=== PATIENT | male | born 1965 | race Caucasian/White ===

== ENCOUNTER 2017-11-04 00:17 | Emergency (ER) | payer BC ==
[2017-11-04 00:28] VITALS: BMI 28.7
[2017-11-04] MEDS ORDERED: TETANUS AND DIPHTHERIA TOXOID 0.5 ML DISP.SYRIN IM ONE (01:06)
--- NOTE | 2017-11-04 01:25 | PDOC ---
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 States that he had been drinking was unsteady slipped and fell 2, last time hitting his head on the door frame. Per daughter no LOC. Patient is a poor historian currently due to intoxication PMHX: negative PSocHx: (+) etoh, ALL: erythromycin ROS unable to obtain due to intoxication. GENERAL: [The patient is awake, alert, and fully oriented, in no acute distress. ] HEAD: (+) laceration to the right occiput 2cm with hematoma EYES: [Pupils equal, round and reactive to light, extraocular movements intact, sclera anicteric, conjunctiva clear.] ENT: [Ears normal, nares patent, oropharynx clear without exudates. Moist mucous membranes.] NECK: [Normal range of motion, supple without lymphadenopathy, JVD, or masses.] LUNGS: [Breath sounds equal, clear to auscultation bilaterally. No wheezes, and no crackles.] HEART: [Regular rate and rhythm, normal S1 and S2 without murmur, rub.] ABDOMEN: [Soft, nontender, normoactive bowel sounds. No guarding, no rebound. No masses.] EXTREMITIES: [Normal range of motion, no edema. No clubbing or cyanosis. No cords, erythema, or tenderness.] NEUROLOGICAL: [Cranial nerves II through XII grossly intact. slurred speech, opthomoplegia, unsteady gait.] PSYCH: aggressive mood, normal affect.] SKIN: [Warm, Dry, normal turgor, no rashes or lesions noted.] Past History - Past Medical History Allergies/Adverse Reactions: Allergies Allergy/AdvReac Type Severity Reaction Status Date / Time erythromycin lactobionate Allergy Verified 12/01/11 01:40 [From Erythrocin] COPD: No DVT: No - Surgical History Appendectomy: Yes - Suicide/Smoking/Psychosocial Hx Smoking Status: No Smoking History: Current some day smoker Number of Cigarettes Smoked Daily: 0 Information on smoking cessation initiated: No Hx Alcohol Use: Yes *Physical Exam - Vital Signs Last Vital Signs Temp Pulse Resp BP Pulse Ox 152/81 11/04/17 00:25 Procedures - Laceration/Wound Repair Right Posterior Head Wound Length: to 2.5 cm Wound's Depth, Shape: superficial Wound Repaired With: [place] (refused) ED Treatment Course - RADIOLOGY Radiology Studies Ordered: Category Date Time Status HEAD CT WITHOUT CONTRAST [CT] Stat CT Scan 11/04/17 01:05 Ordered Medical Decision Making - Medical Decision Making 11/04/17 01:25 Patient is a 51-year-old male with no past medical history 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 ct head and staple Patient Full Name: FRANCOIS PHIPPS Patient Accession No: [id number] Patient : 1965 Reason for Exam: CLOSE HEAD INJURY Referring Physician: Patient Name: MOISE PARRISH THIS IS A PRELIMINARY REPORT FROM [facility] DATE OF SERVICE: 2017-11-04 01:13:56 IMAGES: 173 EXAM: HEAD CT WITHOUT CONTRAST HISTORY: Closed head injury COMPARISON: None. FINDINGS: Brain parenchyma is normal in attenuation with no mass or hematoma. There is no midline shift. Hauser and white matter differentiation is normal. Ventricles are normal. Sulci and extra-axial CSF spaces are normal. Intracranial vascular structures are normal in attenuation. There is no calvarial fracture. Paranasal sinuses are normally aerated. IMPRESSION: Normal head THIS DOCUMENT HAS BEEN ELECTRONICALLY SIGNED Samson Carrion MD 11/04/2017 01:37 EST M.D. Please call [facility] [phone]) with questions. INTERPRETING RADIOLOGIST: Samson Carrion MD Electronically Signed: Nov 04, 2017 01:40AM EDT 11/04/17 01:58 At discharge family did not feel safe taking the patient home and requested that the patient stay sober up and will collect him in the morning. Patient became very belligerent, uncooperative. He was given Haldol 5 mg and Ativan 2 mg IM 11/04/17 06:58 Patient still sleepy but less agitated and combative. Called Mer his at [phone] who will pick him up but due to the weather will be delayed in picking him up. endorsed to the AM team. *DC/Admit/Observation/Transfer Diagnosis at time of Disposition: Head injury Qualifiers: Encounter type: initial encounter Qualified Code(s): S09.90XA - Unspecified injury of head, initial encounter Laceration of scalp Qualifiers: Encounter type: initial encounter Qualified Code(s): S01.01XA - Laceration without foreign body of scalp, initial encounter - Discharge Dispostion Disposition: HOME Condition at time of disposition: Stable - Referrals - Patient Instructions Printed Discharge Instructions: DI for Closed Head Injury Additional Instructions: Your Discharge Instructions: You must call primary care physician within 24 hours to arrange follow-up. Return to the Emergency Department with any new, persistent or worsening symptoms, for fever, chills, SOB, dizziness or any other concerning changes that may occur. Staple removal in 7 days. You may return to the emergency room fast track area between the hours of 8 AM to 10 PM - Post Discharge Activity
[2017-11-04] MEDS ORDERED: LORazepam 2 MG/ML SDV VIAL ONE (02:39)
[2017-11-04] MEDS ORDERED: HALOPERIDOL LACTATE 5 MG/ML ONE (02:39)
[2017-11-04] MEDS ORDERED: HALOPERIDOL LACTATE 5 MG/ML IM ONE (02:52)
[2017-11-04] MEDS ORDERED: IBUPROFEN 400 MG TABLET (FP) PO ONE ×2 (08:02→08:21)
--- NOTE | 2017-11-04 08:05 | PDOC ---
*Physical Exam - Vital Signs Last Vital Signs Temp Pulse Resp BP Pulse Ox 152/81 98 11/04/17 00:25 11/04/17 05:26 - Physical Exam General Appearance: Yes: Appropriately Dressed. No: Apparent Distress HEENT: positive: Normal Voice Neck: positive: Supple Respiratory/Chest: negative: Respiratory Distress Gastrointestinal/Abdominal: positive: Soft. negative: Tender Extremity: positive: Normal Inspection, Other (LROM 2/2 pain). negative: Tender , Swelling Integumentary: positive: Dry, Warm Neurologic: positive: Fully Oriented, Alert, Normal Mood/Affect ED Treatment Course - RADIOLOGY Radiology Studies Ordered: Category Date Time Status SHOULDER-RIGHT [RAD] Stat Radiology 11/04/17 08:01 Ordered - Medications Given in the ED: ED Medications Discontinued Medications Generic Name Dose Route Start Last Admin Trade Name Freq PRN Reason Stop Dose Admin Haloperidol 5 mg 11/04/17 02:52 11/04/17 02:57 Haldol Injection (Fast Acting) - IM 11/04/17 02:53 5 mg ONCE ONE Administration Lorazepam 2 mg 11/04/17 02:52 11/04/17 02:57 Ativan Injection - IM 11/04/17 02:53 2 mg ONCE ONE Administration Tetanus/Diphtheria Toxoids Adsorbed 0.5 ml 11/04/17 01:06 11/04/17 02:10 Decavac IM 11/04/17 01:07 Not Given .ONCE ONE Medical Decision Making - Medical Decision Making 11/04/17 08:02 Signed out to me at 7 AM by TEQUILA Douglas. Patient is a 51-year-old male, EtOH abuse, presents with fall with head injury in the setting of alcohol intoxication. Per prior team, patient poor historian secondary to condition. CT head done and negative. Refused repair of scalp lac. Patient currently sleeping in ED. To be reassessed. Patient's , Mer was contacted and is en route to pick patient up 11/04/17 08:04 On reassessment, patient now awake and alert w/ clear speech and able to ambulate. Only reports right shoulder pain at this time. Patient states he has chronic pain to right shoulder, but that pain might have worsened, status post fall. Pain worse with range of motion. Denies headache, dizziness, nausea , vomiting at this time. Continues to refuse lac repair. X-ray shoulder pending. Dose of Motrin given in ED. I spoke to patient's , who is currently trying to clean snow off her car and then states will make her way to ED to pick patient up 11/04/17 09:20 Xray neg for fx. Pain improved w/ meds. at bedside to take pt home. Pt stable for discharge *DC/Admit/Observation/Transfer Diagnosis at time of Disposition: Head injury Qualifiers: Encounter type: initial encounter Qualified Code(s): S09.90XA - Unspecified injury of head, initial encounter Laceration of scalp Qualifiers: Encounter type: initial encounter Qualified Code(s): S01.01XA - Laceration without foreign body of scalp, initial encounter Shoulder pain, right Qualifiers: Chronicity: acute Qualified Code(s): M25.511 - Pain in right shoulder - Discharge Dispostion Disposition: HOME Condition at time of disposition: Stable - Referrals - Patient Instructions Printed Discharge Instructions: DI for Closed Head Injury Additional Instructions: Your Discharge Instructions: You must call primary care physician within 24 hours to arrange follow-up. Return to the Emergency Department with any new, persistent or worsening symptoms, for fever, chills, SOB, dizziness or any other concerning changes that may occur. Staple removal in 7 days. You may return to the emergency room fast track area between the hours of 8 AM to 10 PM - Post Discharge Activity
[2017-11-04 09:37] VITALS: BP 148/87; PULSE 88
== END 2017-11-04 09:37 | disposition home or self-care (01) ==
LOC: JER 00:17
PROC: 3E0234Z Introduction of Serum, Toxoid and Vaccine into Muscle, Percutaneous Approach (ICD-10-PCS; principal; 2017-11-04)
PROC: 3E023NZ Introduction of Analgesics, Hypnotics, Sedatives into Muscle, Percutaneous Approach (ICD-10-PCS; 2017-11-04)
PROC: 3E023NZ Introduction of Analgesics, Hypnotics, Sedatives into Muscle, Percutaneous Approach (ICD-10-PCS; 2017-11-04)
DX: S01.01XA Laceration without foreign body of scalp, initial encounter (principal); W01.118A Fall on same level from slipping, tripping and stumbling with subsequent striking against other sharp object, initial encounter; F10.10 Alcohol abuse, uncomplicated; F17.210 Nicotine dependence, cigarettes, uncomplicated; Y92.018 Other place in single-family (private) house as the place of occurrence of the external cause
CPT/HCPCS: 70450-TC; 73030-TC-RT-FY; 99281-25

== ENCOUNTER 2019-01-21 08:35 | Day surgery (SDC) | payer BC ==
[2019-01-20 15:08] VITALS: BMI 25.1
[2019-01-21 11:11] VITALS: TEMP 98.7
[2019-01-21 11:58] VITALS: BP 146/90; PULSE 64
--- NOTE | 2019-01-22 11:42 | PATH ---
Surgical Pathology Report Patient Name: MOISE PARRISH [facility]. Rec. #: [id number] /Age/Gender: 1965 (Age: 53) / M Account: [id number] Location: [facility]-ENDOSCOPY Taken: 01/21/2019 Received: 01/21/2019 Reported: 01/22/2019 Physicians: Hector Ortega M.D. Specimen(s) Received A: SECOND PORTION DUODENUM AND DUODENAL BULB B: ANTRUM C: GE JUNCTION D: MID ESOPHAGUS E: PROXIMAL TRANSVERSE COLON POLYP F: CECUM Clinical History Family history of esophageal cancer, reflux, family history of colon cancer Postoperative diagnosis: GERD, hiatal hernia, gastritis, colon polyps, diverticulosis Final Diagnosis A. DUODENUM, SECOND PORTION AND DUODENAL BULB, BIOPSY: DUODENAL MUCOSA WITHOUT SIGNIFICANT PATHOLOGIC FINDINGS. B. STOMACH, ANTRUM, BIOPSY: GASTRIC ANTRAL MUCOSA WITH MILD CHRONIC GASTRITIS. IMMUNOHISTOCHEMICAL STAIN FOR H. PYLORI IS NEGATIVE. C. GE JUNCTION, BIOPSY: SQUAMOCOLUMNAR MUCOSA WITH MILD CHRONIC INFLAMMATION AND CHANGES OF MODERATE REFLUX ESOPHAGITIS. NO INTESTINAL METAPLASIA OR DYSPLASIA IDENTIFIED. D. MID ESOPHAGUS, BIOPSY: SQUAMOUS MUCOSA WITH CHANGES CONSISTENT WITH MODERATE REFLUX ESOPHAGITIS. E. PROXIMAL TRANSVERSE COLON, POLYP, BIOPSY: TUBULAR ADENOMA. F. CECAL, POLYP, BIOPSY: POLYPOID COLONIC MUCOSA WITH SMALL LYMPHOID AGGREGATE. Electronically Signed Luz Marina Waddell M.D. Gross Description A. Received in formalin, labeled "biopsy second portion of duodenum and duodenal bulb" are 3 padgett, irregular portions of soft tissue averaging 0.4 cm. in greatest dimension. The specimens are submitted in toto in one cassette. B. Received in formalin, labeled "biopsy antrum" are 3 padgett, irregular portions of soft tissue ranging from 0.3-0.4 cm. in greatest dimension. The specimens are submitted in toto in one cassette. C. Received in formalin, labeled "biopsy GE junction" are 3 padgett, irregular portions of soft tissue ranging from 0.1-0.5 cm. in greatest dimension. The specimens are submitted in toto in one cassette. D. Received in formalin, labeled "biopsy mid esophagus" are 2 padgett, irregular portions of soft tissue measuring 0.3 and 0.4 cm. in greatest dimension. The specimens are submitted in toto in one cassette. E. Received in formalin, labeled "biopsy proximal transverse colon polyp" are 3 padgett, irregular portions of soft tissue ranging from 0.1-0.3 cm. in greatest dimension. The specimens are submitted in toto in one cassette. F. Received in formalin, labeled "biopsy cecal polyp" are 2 padgett, irregular portions of soft tissue averaging 0.3 cm. in greatest dimension. The specimens are submitted in toto in one cassette. 01/21/2019 [facility]01/21/2019
== END 2019-01-21 11:47 | disposition home or self-care (01) ==
LOC: JASU-ENDO 08:35
PROVIDERS: ATTEND Internal Medicine Gastroenterology
PROC: 0DBH8ZX Excision of Cecum, Via Natural or Artificial Opening Endoscopic, Diagnostic (ICD-10-PCS; 2019-01-21)
PROC: 0DBL8ZX Excision of Transverse Colon, Via Natural or Artificial Opening Endoscopic, Diagnostic (ICD-10-PCS; 2019-01-21)
PROC: 0DB68ZX Excision of Stomach, Via Natural or Artificial Opening Endoscopic, Diagnostic (ICD-10-PCS; principal; 2019-01-21 09:45)
DX: Z12.11 Encounter for screening for malignant neoplasm of colon (principal); Z80.0 Family history of malignant neoplasm of digestive organs; D12.0 Benign neoplasm of cecum; D12.3 Benign neoplasm of transverse colon; K64.8 Other hemorrhoids; K57.30 Diverticulosis of large intestine without perforation or abscess without bleeding; K21.0 Gastro-esophageal reflux disease with esophagitis; K44.9 Diaphragmatic hernia without obstruction or gangrene; K29.70 Gastritis, unspecified, without bleeding; K25.9 Gastric ulcer, unspecified as acute or chronic, without hemorrhage or perforation
CPT/HCPCS: 88305-TC; 88342-TC

== ENCOUNTER 2023-10-24 04:56 | Day surgery (SDC) | payer BC ==
[2023-10-18 14:16] VITALS: BMI 25.5
[2023-10-24 09:28] VITALS: TEMP 98.7
[2023-10-24 10:07] VITALS: BP 140/80; PULSE 62; RESP 1
== END 2023-10-24 11:00 | disposition home or self-care (01) ==
LOC: JASU-ENDO 04:56
PROVIDERS: ATTEND Internal Medicine Gastroenterology
PROC: 0DBL8ZX Excision of Transverse Colon, Via Natural or Artificial Opening Endoscopic, Diagnostic (ICD-10-PCS; principal; 2023-10-24 09:00)
DX: Z12.11 Encounter for screening for malignant neoplasm of colon (principal); D12.3 Benign neoplasm of transverse colon; K57.30 Diverticulosis of large intestine without perforation or abscess without bleeding; K64.8 Other hemorrhoids; Z86.010 Personal history of colon polyps; Z80.0 Family history of malignant neoplasm of digestive organs
CPT/HCPCS: 88305-TC